=== PATIENT | male | born 1990 | race African-American/Black ===

== ENCOUNTER 2024-03-19 08:38 | Emergency (ER) | payer OTHER ==
[2024-03-19 08:50] VITALS: BP 131/90; PULSE 81; RESP 18; TEMP 97.8; BMI 27.7
[2024-03-19 21:57] LABS: SYPHILIS W/ RPR CONF NON-REACTIVE (NONREACTIVE)
[2024-03-19 22:08] LABS: HIV INTERPRETATION PRESUMPTIVE POSITIVE (NEGATIVE)
== END 2024-03-19 09:40 | disposition home or self-care (01) ==
LOC: JERFT 08:38
DX: Z11.3 Encounter for screening for infections with a predominantly sexual mode of transmission (principal)
CPT/HCPCS: 36415; 86704; 86780; 86803; 87340; 87389; 87491; 87517; 87591; 99283-25